=== PATIENT | female | born 1995 | race Caucasian/White ===

== ENCOUNTER 2019-04-03 15:15 | Outpatient (RCR) | payer OTHER | END 2019-04-04 | disposition home or self-care (01) | PROVIDERS: ATTEND Internal Medicine | DX: S13.4XXA Sprain of ligaments of cervical spine, initial encounter (principal); R29.898 Other symptoms and signs involving the musculoskeletal system; V89.2XXA Person injured in unspecified motor-vehicle accident, traffic, initial encounter ==

== ENCOUNTER 2019-05-12 14:21 | Outpatient (RCR) | payer OTHER | END 2019-05-12 16:57 | disposition home or self-care (01) | PROVIDERS: ATTEND Internal Medicine | DX: S13.4XXA Sprain of ligaments of cervical spine, initial encounter (principal); R29.898 Other symptoms and signs involving the musculoskeletal system; V89.2XXA Person injured in unspecified motor-vehicle accident, traffic, initial encounter ==